=== PATIENT | female | born 1945 | race Caucasian/White ===

== ENCOUNTER 2017-07-31 03:59 | Outpatient (CLI) | payer MEDICARE ==
[~2017-07-31 03:59] MED LIST: ALBU18HF2 INH; ASPI-1265 PO; BECL7.3A INH; ERGO500056 PO; ESOM40CA30 PO; LACT1CAP65 PO; LOSA25TA96 PO; METF500T4 PO; METO100T7 PO; MONT10TA21 PO; NITR4.1S2 TL; NYSPWD TP; WEL625T PO
== END 2017-07-31 23:59 | disposition home or self-care (01) ==
LOC: DIABETIC 03:59
PROVIDERS: ATTEND Otolaryngology
DX: E11.65 Type 2 diabetes mellitus with hyperglycemia (principal); J44.9 Chronic obstructive pulmonary disease, unspecified; I10 Essential (primary) hypertension; J45.909 Unspecified asthma, uncomplicated; E11.21 Type 2 diabetes mellitus with diabetic nephropathy; E11.40 Type 2 diabetes mellitus with diabetic neuropathy, unspecified; E11.319 Type 2 diabetes mellitus with unspecified diabetic retinopathy without macular edema; E11.43 Type 2 diabetes mellitus with diabetic autonomic (poly)neuropathy; K31.84 Gastroparesis; E78.5 Hyperlipidemia, unspecified; I25.10 Atherosclerotic heart disease of native coronary artery without angina pectoris; Z98.890 Other specified postprocedural states
CPT/HCPCS: G0108

== ENCOUNTER 2017-10-28 00:23 | Outpatient (CLI) | payer MEDICARE, MEDICAID | END 2017-10-28 23:59 | disposition home or self-care (01) | LOC: DIABETIC 00:23 | PROVIDERS: ATTEND Family Medicine | DX: E11.9 Type 2 diabetes mellitus without complications (principal); I10 Essential (primary) hypertension; J44.9 Chronic obstructive pulmonary disease, unspecified; Z85.89 Personal history of malignant neoplasm of other organs and systems | CPT/HCPCS: G0108 ==

== ENCOUNTER 2018-01-27 03:44 | Outpatient (CLI) | payer MEDICARE ==
[~2018-01-27 03:44] MED LIST changes: +METF-436 PO; -METF500T4 PO
== END 2018-01-27 23:59 | disposition home or self-care (01) ==
LOC: DIABETIC 03:44
PROVIDERS: ATTEND Family Medicine
DX: E11.9 Type 2 diabetes mellitus without complications (principal); I10 Essential (primary) hypertension; E78.5 Hyperlipidemia, unspecified; J44.9 Chronic obstructive pulmonary disease, unspecified; K21.9 Gastro-esophageal reflux disease without esophagitis; I11.0 Hypertensive heart disease with heart failure; I50.9 Heart failure, unspecified; E78.00 Pure hypercholesterolemia, unspecified; I25.110 Atherosclerotic heart disease of native coronary artery with unstable angina pectoris; Z79.82 Long term (current) use of aspirin
CPT/HCPCS: G0108

== ENCOUNTER 2018-05-29 16:16 | Inpatient (IN) | payer MEDICARE, MEDICAID ==
[~2018-05-29] VITALS: Ht 157.5 cm; Wt 79.8 kg
[2018-05-29 17:18] LABS: BASOPHILS % (AUTO) 0.2 % (0-1); EOSINOPHILS % (AUTO) 0 % (0-6); HEMATOCRIT 33.7 % (35.0-45.0); HEMOGLOBIN 10.8 g/dl (12.0-16.0); LYMPHOCYTES # (AUTO) 1.7 X10'3 (1.1-4.8); LYMPHOCYTES % (AUTO) 14.5 % (21-51); MEAN CORPUSCULAR HEMOGLOBIN 26.3 PG (27.0-31.0); MEAN CORPUSCULAR VOLUME 82.2 FL (78-98); MEAN PLATELET VOLUME 7.9 FL (7.4-10.4); MONOCYTES # (AUTO) 0.9 X10'3 (0-0.9); MONOCYTES % (AUTO) 7.9 % (2-12); NEUTROPHILS % (AUTO) 77.4 % (42-75); PLATELET COUNT 261 X10'3 (140-440); RED CELL DISTRIBUTION WIDTH 17.9 % (11.5-14.5); WHITE BLOOD COUNT 11.6 X10'3 (4.5-11.0)
[2018-05-29 17:31] LABS: INR 1.2 INR; PROTHROMBIN TIME 11.6 SECONDS (9.0-12.0)
[2018-05-29 17:35] LABS: URINE HCG NEGATIVE (NEG)
[2018-05-29 17:35] LABS: ALANINE AMINOTRANSFERASE 19 U/L (12-78); ALBUMIN 3.2 G/DL (3.4-5.0); ALBUMIN/GLOBULIN RATIO 0.7 (1.1-1.5); ALKALINE PHOSPHATASE 79 IU/L (46-116); ANION GAP 15 (8-16); ASPARTATE AMINO TRANSFERASE 18 U/L (10-37); BILIRUBIN,TOTAL 0.9 MG/DL (0.1-1.0); BLOOD UREA NITROGEN 23 MG/DL (7-18); BUN/CREATININE RATIO 16.5 (6.6-38.0); CALCIUM 9.4 MG/DL (8.5-10.1); CHLORIDE 99 MMOL/L (99-107); CREATININE 1.39 MG/DL (0.40-0.90); GLUCOSE 149 MG/DL (70-104); POTASSIUM 4.1 MMOL/L (3.5-5.1); SODIUM 135 MMOL/L (135-145); TOTAL CARBON DIOXIDE 21.2 MMOL/L (24-32); eGFR 37 ML/MIN
[2018-05-29 17:41] LABS: TOTAL CELLS COUNTED 100
[2018-05-29 17:43] LABS: ANISOCYTOSIS 2+; PLATELET ESTIMATE NORMAL; POLYCHROMASIA FEW
[2018-05-29] MEDS ORDERED: normal saline 1000ML IV soln IVB ONE ×2 (17:55→20:20)
[2018-05-29] MEDS ORDERED: ondansetron/PF 4mg/2ml inj IV ONE (17:55)
[2018-05-29 18:18] LABS: LIPASE 55 U/L (73-393)
[2018-05-29 18:41] LABS: CLARITY,URINE CLOUDY (Clear); COLOR,URINE YELLOW (Yellow); GLUCOSE, URINE NEGATIVE (Neg); KETONES,URINE TRACE mg/dl (Neg); LEUKOCYTE ESTERASE ,URINE SMALL (Neg); NITRITES, URINE NEGATIVE (Neg); OCCULT BLOOD,URINE TRACE-INTACT (Neg); PH,URINE 5.5 (4.8-8.0); PROTEIN,URINE 30 mg/dl (Neg); UROBILINOGEN,URINE 0.2 E.U/dL (0.2-1.0)
[2018-05-29 18:46] LABS: UA COLLECTION TYPE CLN CATCH MIDSTREAM
[2018-05-29 18:59] LABS: BACTERIA,URINE 2+ /HPF (Neg); MUCUS STRANDS MANY /LPF (Neg); RBC,URINE 0-2 /HPF (0-2); SQUAMOUS EPITHELIAL CELL,UR MANY /LPF (FEW)
[2018-05-29 19:00] LABS: AMORPHOUS URATES 1+; FINE GRANULAR CAST 0-3 /LPF (NEGATIVE)
[2018-05-29] MEDS ORDERED: metroNIDAZOLE-Flagyl 500mg/NS 100 ML IV STA (19:51)
[2018-05-29] MEDS ORDERED: levoFLOXACIN-Levaquin 500mg/D5 100 ML IV ONE (19:55)
[2018-05-29] MEDS ORDERED: insulin Lispro (HumaLOG) vial - multi-dose SQ SCH (21:55)
[2018-05-29] MEDS ORDERED: glucagon, human recombinant 1mg kit SUBCUT PRN (21:55)
[2018-05-29] MEDS ORDERED: mag hydrox/Alum hydrox/simeth 30ml oral suspension PO PRN (21:55)
[2018-05-29] MEDS ORDERED: dextrose 50%-water 50ml dispensing syringe IV PRN ×2 (21:55)
[2018-05-29] MEDS ORDERED: dextrose ORAL solution 15 GM/59 ML bottle PO PRN ×2 (21:55)
[2018-05-29] MEDS ORDERED: magnesium hydroxide 30ml (MOM) UD suspension PO PRN (21:55)
[2018-05-29] MEDS ORDERED: ondansetron/PF 4mg/2ml inj IV PRN (21:55)
[2018-05-29] MEDS ORDERED: acetaminophen 325mg tablet PO PRN ×2 (21:55)
[2018-05-29] MEDS ORDERED: MESSAGE TO PHARMACY PO ONE (21:55)
[2018-05-29] MEDS ORDERED: montelukast 10mg tablet PO PRN (22:00)
[2018-05-29] MEDS ORDERED: NITROGLYCERIN SL PRN (22:00)
[2018-05-29 23:30] VITALS: BP 108/73
[2018-05-29] MEDS: normal saline 1000ml 1,000 ML IV SCH (23:35)
[2018-05-29] MEDS: metroNIDAZOLE-Flagyl 500mg/NS 100 ML IV SCH (23:38)
[2018-05-30 05:23] LABS: BASOPHILS % (AUTO) 0.1 % (0-1); EOSINOPHILS % (AUTO) 0 % (0-6); HEMATOCRIT 28.3 % (35.0-45.0); HEMOGLOBIN 9.1 g/dl (12.0-16.0); LYMPHOCYTES # (AUTO) 0.8 X10'3 (1.1-4.8); LYMPHOCYTES % (AUTO) 12.8 % (21-51); MEAN CORPUSCULAR HEMOGLOBIN 26.3 PG (27.0-31.0); MEAN CORPUSCULAR HGB CONC 32.2 % (33.0-36.5); MEAN CORPUSCULAR VOLUME 81.8 FL (78-98); MEAN PLATELET VOLUME 7.9 FL (7.4-10.4); MONOCYTES # (AUTO) 0.4 X10'3 (0-0.9); MONOCYTES % (AUTO) 6.6 % (2-12); NEUTROPHILS # (AUTO) 5.3 X10'3 (1.8-7.7); NEUTROPHILS % (AUTO) 80.5 % (42-75); PLATELET COUNT 180 X10'3 (140-440); RED BLOOD COUNT 3.46 X10'6 (4.20-5.60); RED CELL DISTRIBUTION WIDTH 18.1 % (11.5-14.5); WHITE BLOOD COUNT 6.6 X10'3 (4.5-11.0)
[2018-05-30] MEDS: normal saline 1000ml 1,000 ML IV SCH ×2 (05:55→17:00)
[2018-05-30 05:59] LABS: ALBUMIN 2.4 G/DL (3.4-5.0); ANION GAP 13 (8-16); BLOOD UREA NITROGEN 17 MG/DL (7-18); BUN/CREATININE RATIO 13.6 (6.6-38.0); CALCIUM 8.2 MG/DL (8.5-10.1); CHLORIDE 100 MMOL/L (99-107); CREATININE 1.25 MG/DL (0.40-0.90); GLUCOSE 129 MG/DL (70-104); POTASSIUM 3.9 MMOL/L (3.5-5.1); SODIUM 134 MMOL/L (135-145); TOTAL CARBON DIOXIDE 20.9 MMOL/L (24-32); eGFR 42 ML/MIN
[2018-05-30] MEDS: pantoprazole 40mg Tablet.DR PO SCH (07:30)
[2018-05-30] MEDS ORDERED: levoFLOXACIN-Levaquin 250mg/D5 50 ML IV SCH (08:00)
[2018-05-30] MEDS ORDERED: enoxaparin 40mg/0.4ml syringe SUBCUT SCH (08:00)
[2018-05-30] MEDS ORDERED: METOPROLOL SUCCINATE PO SCH (08:00)
[2018-05-30] MEDS: lactobacillus rhamnosus 10,000 MMU CELLS/CAPSULE PO SCH (08:05)
[2018-05-30] MEDS: aspirin 81mg tab.chew PO SCH (08:05)
[2018-05-30] MEDS: metroNIDAZOLE-Flagyl 500mg/NS 100 ML IV SCH (08:08)
[2018-05-30] MEDS ORDERED: enoxaparin 30mg/0.3ml syringe SUBCUT SCH (08:14)
[2018-05-30 10:00] VITALS: BP 106/39
[2018-05-30] MEDS: levoFLOXACIN 250mg tablet PO SCH (10:18)
[2018-05-30] MEDS: nystatin 15 GM powder TP PRN (10:49)
[2018-05-30] MEDS: ESOMEPRAZOLE 40 MG PO SCH (12:49)
[2018-05-30] MEDS ORDERED: LEVO25TA7 PO (13:29)
[2018-05-30] MEDS: metroNIDAZOLE 500mg tablet PO SCH (17:00)
[2018-05-30 18:00] VITALS: BP 121/66
[2018-05-30] MEDS: metFORMIN 500mg tablet PO SCH (20:21)
[2018-05-30] MEDS ORDERED: insulin glargine (Lantus) pen - multi-dose SQ SCH (21:00)
[2018-05-31] MEDS: metroNIDAZOLE 500mg tablet PO SCH ×2 (00:36→07:40)
[2018-05-31] MEDS: normal saline 1000ml 1,000 ML IV SCH (01:32)
[2018-05-31 06:57] LABS: BASOPHILS % (AUTO) 0.1 % (0-1); EOSINOPHILS # (AUTO) 0.1 X10'3 (0-0.9); HEMATOCRIT 26.5 % (35.0-45.0); HEMOGLOBIN 8.4 g/dl (12.0-16.0); LYMPHOCYTES # (AUTO) 0.6 X10'3 (1.1-4.8); LYMPHOCYTES % (AUTO) 10.5 % (21-51); MEAN CORPUSCULAR HEMOGLOBIN 26.5 PG (27.0-31.0); MEAN CORPUSCULAR HGB CONC 31.9 % (33.0-36.5); MEAN PLATELET VOLUME 8.1 FL (7.4-10.4); MONOCYTES # (AUTO) 0.5 X10'3 (0-0.9); MONOCYTES % (AUTO) 8.8 % (2-12); NEUTROPHILS # (AUTO) 4.5 X10'3 (1.8-7.7); NEUTROPHILS % (AUTO) 79.6 % (42-75); PLATELET COUNT 179 X10'3 (140-440); RED BLOOD COUNT 3.19 X10'6 (4.20-5.60); RED CELL DISTRIBUTION WIDTH 17.9 % (11.5-14.5); WHITE BLOOD COUNT 5.6 X10'3 (4.5-11.0)
[2018-05-31 07:10] LABS: ALBUMIN 2.2 G/DL (3.4-5.0); ANION GAP 11 (8-16); BLOOD UREA NITROGEN 13 MG/DL (7-18); BUN/CREATININE RATIO 11.1 (6.6-38.0); CALCIUM 7.9 MG/DL (8.5-10.1); CHLORIDE 104 MMOL/L (99-107); CREATININE 1.17 MG/DL (0.40-0.90); GLUCOSE 139 MG/DL (70-104); POTASSIUM 3.8 MMOL/L (3.5-5.1); SODIUM 137 MMOL/L (135-145); TOTAL CARBON DIOXIDE 22.5 MMOL/L (24-32); eGFR 45 ML/MIN
[2018-05-31 07:17] VITALS: BP 111/45
[2018-05-31] MEDS: metFORMIN 500mg tablet PO SCH (07:40)
[2018-05-31] MEDS: pantoprazole 40mg Tablet.DR PO SCH (07:40)
[2018-05-31] MEDS: aspirin 81mg tab.chew PO SCH (07:40)
[2018-05-31] MEDS: lactobacillus rhamnosus 10,000 MMU CELLS/CAPSULE PO SCH (07:41)
[2018-05-31] MEDS: ESOMEPRAZOLE 40 MG PO SCH (07:42)
[2018-05-31] MEDS: nystatin 15 GM powder TP PRN (07:42)
[2018-05-31] MEDS ORDERED: METR500T4 PO (07:46)
[2018-05-31] MEDS ORDERED: LEVO500T2 PO (07:46)
[2018-05-31] MEDS ORDERED: levoFLOXACIN 250mg tablet PO SCH (11:00)
[2018-05-31] MEDS: levoFLOXACIN 250mg tablet PO SCH (11:31)
== END 2018-05-31 13:00 | disposition home or self-care (01) | DRG 682 ==
LOC: ER 16:16 → ED HOLD 21:53 → ORTHO 4S 23:05
PROVIDERS: ADMIT Hospitalist; ATTEND Internal Medicine
DX: N17.9 Acute kidney failure, unspecified (principal); E43 Unspecified severe protein-calorie malnutrition; K57.92 Diverticulitis of intestine, part unspecified, without perforation or abscess without bleeding; E11.9 Type 2 diabetes mellitus without complications; D63.8 Anemia in other chronic diseases classified elsewhere; M35.3 Polymyalgia rheumatica; R00.0 Tachycardia, unspecified; Z90.710 Acquired absence of both cervix and uterus; Z95.3 Presence of xenogenic heart valve; Z88.2 Allergy status to sulfonamides; Z88.6 Allergy status to analgesic agent; Z88.8 Allergy status to other drugs, medicaments and biological substances; Z88.1 Allergy status to other antibiotic agents; Z91.018 Allergy to other foods; Z79.82 Long term (current) use of aspirin; Z79.84 Long term (current) use of oral hypoglycemic drugs; Z86.73 Personal history of transient ischemic attack (TIA), and cerebral infarction without residual deficits; Z82.49 Family history of ischemic heart disease and other diseases of the circulatory system; Z84.1 Family history of disorders of kidney and ureter; Z83.79 Family history of other diseases of the digestive system; Z68.32 Body mass index [BMI] 32.0-32.9, adult
CPT/HCPCS: 36415; 74176; 80048; 80053; 81001; 81025; 82948; 83036; 83690; 85025; 85610; 87070; 96374; 96375; 99285; G0378; J1650; J1815; J1956; J2405; J3490; J7030

== ENCOUNTER 2018-08-06 06:21 | Day surgery (SDC) | payer MEDICARE, MEDICAID ==
[2018-07-25 12:31] LABS: BASOPHILS % (AUTO) 0.8 % (0-1); EOSINOPHILS # (AUTO) 0.2 X10'3 (0-0.9); EOSINOPHILS % (AUTO) 3.9 % (0-6); LYMPHOCYTES # (AUTO) 1.8 X10'3 (1.1-4.8); LYMPHOCYTES % (AUTO) 33.2 % (21-51); MEAN CORPUSCULAR HEMOGLOBIN 26.8 PG (27.0-31.0); MEAN CORPUSCULAR HGB CONC 32.2 % (33.0-36.5); MEAN CORPUSCULAR VOLUME 83.3 FL (78-98); MEAN PLATELET VOLUME 8.8 FL (7.4-10.4); MONOCYTES # (AUTO) 0.6 X10'3 (0-0.9); MONOCYTES % (AUTO) 11.6 % (2-12); NEUTROPHILS # (AUTO) 2.8 X10'3 (1.8-7.7); NEUTROPHILS % (AUTO) 50.5 % (42-75); PRE OP HEMATOCRIT 35.1 % (35.0-45.0); PRE OP HEMOGLOBIN 11.3 g/dL (12.0-16.0); PRE OP PLATELET COUNT 184 X10'3 (140-440); RED BLOOD COUNT 4.21 X10'6 (4.20-5.60); RED CELL DISTRIBUTION WIDTH 16.3 % (11.5-14.5)
[2018-07-25 12:51] LABS: ALBUMIN 3.7 G/DL (3.4-5.0); ALBUMIN/GLOBULIN RATIO 0.8 (1.1-1.5); ALKALINE PHOSPHATASE 88 IU/L (46-116); BLOOD UREA NITROGEN 18 MG/DL (7-18); BUN/CREATININE RATIO 16.2 (6.6-38.0); CALCIUM 8.9 MG/DL (8.5-10.1); CHLORIDE 101 MMOL/L (99-107); CREATININE 1.11 MG/DL (0.40-0.90); PRE OP ALT 32 U/L (30-65); PRE OP ANION GAP 11 (8-16); PRE OP AST 27 U/L (10-37); PRE OP BILIRUB, TOTAL 0.2 MG/DL (0.0-1.0); PRE OP GLUCOSE 160 MG/DL (70-104); PRE OP POTASSIUM 4.6 MMOL/L (3.4-5.1); PRE OP SODIUM 138 MMOL/L (135-145); TOTAL CARBON DIOXIDE 26.5 MMOL/L (24-32); TOTAL PROTEIN 8.3 G/DL (6.4-8.2); eGFR 48 ML/MIN
[2018-07-25 13:04] LABS: CLARITY,URINE CLEAR (Clear); COLOR,URINE STRAW (Yellow); GLUCOSE, URINE NEGATIVE (Neg); KETONES,URINE NEGATIVE (Neg); LEUKOCYTE ESTERASE ,URINE MODERATE (Neg); NITRITES, URINE NEGATIVE (Neg); OCCULT BLOOD,URINE NEGATIVE (Neg); PH,URINE 5.5 (4.8-8.0); PROTEIN,URINE NEGATIVE (Neg); UROBILINOGEN,URINE 0.2 E.U/dL (0.2-1.0)
[2018-07-25 13:05] LABS: UA COLLECTION TYPE CLN CATCH MIDSTREAM
[2018-07-25 13:11] LABS: MUCUS STRANDS FEW /LPF (Neg); SQUAMOUS EPITHELIAL CELL,UR MANY /LPF (FEW); TRANSITIONAL EPI CELLS,URINE MODERATE /HPF
[2018-07-25 13:12] LABS: BACTERIA,URINE 3+ /HPF (Neg); WBC,URINE 0-4 /HPF (0-4)
[2018-07-25 13:13] LABS: RBC,URINE NONE SEEN /HPF (0-2); RENAL CELLS, URINE MODERATE /HPF
[~2018-08-06] VITALS: Ht 160 cm; Wt 78.0 kg
[2018-08-06] VITALS (45 sets, daily range): BP systolic 101–173; BP diastolic 48–102
[~2018-08-06 06:21] MED LIST changes: -ALBU18HF2 INH; -ASPI-1265 PO; -BECL7.3A INH; +CHOL5000 PO; +DOCUMENT DATE & TIME OF BETA-BLOCKER PO ONE; -ERGO500056 PO; -ESOM40CA30 PO; +FAMO20TA8 PO; -LOSA25TA96 PO; -WEL625T PO; +ceFOXitin 2 GM ADDvantage bag 100 ML IV ONE; +ceFOXitin sod/dextrose 2g/50ml 50 ML IV ONE; +famotidine 20mg tablet PO ONE; +ringers solution, lacted 1,000 ML IV SCH
[2018-08-06] MEDS ORDERED: ceFAZolin 1000mg inj ONE (10:23)
[2018-08-06] MEDS ORDERED: BUPIVAcaine/PF 2.5mg/ml (0.25%) 10ml vial ONE ×2 (10:23→10:25)
[2018-08-06] MEDS ORDERED: epiNEPHrine 1 mg/ml inj ONE (10:25)
[2018-08-06] MEDS ORDERED: sevoflurane 250ml liquid IH ONE (10:54)
[2018-08-06] MEDS ORDERED: midazolam 2 mg/2 ml injection ONE (10:57)
[2018-08-06] MEDS ORDERED: fentaNYL/PF 50MCG/1 ML 2ML syringe ONE (10:57)
[2018-08-06] MEDS ORDERED: ondansetron/PF 4mg/2ml inj ONE (11:15)
[2018-08-06] MEDS ORDERED: propofol inj 20 ML IV ONE (11:15)
[2018-08-06] MEDS ORDERED: dexamethasone sod phosphate 4mg/ml inj. ONE (11:15)
[2018-08-06] MEDS ORDERED: rocuronium 10mg/ml inj IV ONE (11:15)
[2018-08-06] MEDS ORDERED: ringers solution, lacted 1,000 ML IV SCH (11:28)
[2018-08-06] MEDS ORDERED: morphine 4 MG/ML inj SYRINge IV PRN ×2 (11:30)
[2018-08-06] MEDS ORDERED: ondansetron/PF 4mg/2ml inj IV PRN (11:30)
[2018-08-06] MEDS ORDERED: proCHLORperazine 10 MG/2 ml inj IV PRN (11:30)
[2018-08-06] MEDS ORDERED: meperidine/PF 25mg/ml syringe IV PRN ×3 (11:30)
[2018-08-06] MEDS ORDERED: glycopyrrolate 0.2mg/ml inj ONE (11:34)
[2018-08-06] MEDS ORDERED: neostigmine methylsulfate 1 MG/ML 10ml vial ONE (11:34)
--- NOTE | 2018-08-06 12:03 | NUR ---
Received from OR via [facility], accompanied by Anesthesiologist DR NEGRON and report given by Anesthesiologist. PT DROWSY, DENIES PAIN, 4 ABDOMINAL LAP SITES W/BANDAIDS CDI. Addendum: 08/06/18 at 1302 by Nita Rod RN Amended: Links added.
--- NOTE | 2018-08-06 13:20 | NUR ---
PT SA02 DOWN TO 86% ON ROOM AIR, PT APPROPRIATE BUT SLEEPY, PLACED BACK ON NC 02 2 LITERS, INCREASED TO 99%, PT IS SOMEWHAT PAINFUL BUT DECLINES ANY PAIN MEDICATION, STATES SHE DOESN'T TAKE ANY. Addendum: 08/06/18 at 1323 by Nita Rod RN Amended: Links added.
[2018-08-06] MEDS ORDERED: acetaminophen 1,000mg/100ml IV 100 ML IV ONE (13:45)
[2018-08-06] MEDS ORDERED: acetaminophen/codeine 120mg/12mg per 5ml cup PO ONE (14:40)
[2018-08-06] MEDS ORDERED: HYDROmorphone inj. 0.5 MG/0.5 ML DISP.SYRIN IV PRN (16:10)
[2018-08-06] MEDS ORDERED: CADD PCA waste documentation MC PRN (16:50)
[2018-08-06] MEDS ORDERED: naloxone 0.4 mg/ml inj IV PRN (16:50)
[2018-08-06] MEDS ORDERED: montelukast 10mg tablet PO PRN (17:50)
[2018-08-06] MEDS ORDERED: HYDROmorphone/NS 1 mg/ml CADD 50 ML IV SCH (18:05)
--- NOTE | 2018-08-06 18:08 | NUR ---
PT AGREED TO TAKE PAIN MEDICATION, 1000 MG TYLENOL GIVEN FOLLOWED BY .2 MG DILAUDID, PT STATES RELIEF, IS SLEEPY BUT APPROPRIATE, JELLO AND LEMON [place] GIVEN, PT CONSUMED W/O ANY DIFFICULTY. PT AWAITING SURGICAL BED. Addendum: 08/06/18 at 1811 by Nita Rod RN Amended: Links added.
[2018-08-06] MEDS: HYDROmorphone/NS 1 mg/ml CADD 50 ML IV SCH ×4 (18:33→23:00)
--- NOTE | 2018-08-06 19:03 | NUR ---
Report called to receiving nurse. PT Transferred TO ROOM 348B IN STABLE CONDITION via BED W/2 PT Belongings BAGS, CELL PHONE AND GLASSES, PT AMBULATE W/CONTACT GUARD TO BATHROOM FOR LARGE VOID THEN BACK TO BED, RECEIVING RN AT BEDSIDE TO RECEIVE PT, SIDE RAILS UP X 2, CALL LIGHT GIVEN, BLL. Special Issues communicated to receiving nurse. YES. Addendum: 08/06/18 at 1916 by Nita Rod RN Amended: Links added.
[2018-08-06] MEDS ORDERED: nitroGLYCERIN 0.4mg SUBLingual tab SL PRN (19:15)
[2018-08-06] MEDS ORDERED: nystatin 15 GM powder TP PRN (20:00)
[2018-08-06] MEDS: metFORMIN 500mg tablet PO SCH (20:58)
[2018-08-06] MEDS: famotidine 20mg tablet PO SCH (20:58)
--- NOTE | 2018-08-06 22:53 | NUR ---
Patient in room [facility]. I have received report from AMRIK Moya RN and had the opportunity to ask questions and assume patient care. Addendum: 08/06/18 at 2255 by Jessa Saha RN Amended: Links added.
[2018-08-07] MEDS: HYDROmorphone/NS 1 mg/ml CADD 50 ML IV SCH ×8 (01:00→15:00)
--- NOTE | 2018-08-07 06:32 | NUR ---
Problems reprioritized. Patient report given, questions answered & plan of care reviewed with ERN. Maritza Addendum: 08/07/18 at 0632 by Jessa Saha RN Amended: Links added.
--- NOTE | 2018-08-07 06:55 | NUR ---
Patient in room [facility]. I have received report from DIOGENES Joseph and had the opportunity to ask questions and assume patient care. Patient resting at this time. Call light and items of frequent use in reach of patient.
[2018-08-07 08:00] VITALS: BP 101/37
[2018-08-07] MEDS ORDERED: lactobacillus rhamnosus 10,000 MMU CELLS/CAPSULE PO SCH (08:00)
[2018-08-07] MEDS ORDERED: TOPROL 50 MG PO SCH (08:00)
[2018-08-07] MEDS: famotidine 20mg tablet PO SCH (08:15)
[2018-08-07] MEDS: metFORMIN 500mg tablet PO SCH (08:15)
[2018-08-07 11:00] VITALS: BP 166/64
--- NOTE | 2018-08-07 16:30 | NUR ---
patient discharged home via son. Patient taken from unit via wheelchair with x1 staff. Patient took all belongings with her including her home medication from the pharmacy. Discharge instructions given to patient and patient stated an understanding of them. Patient to make follow up appointment with PCP. Patient PIV discontinued with cannula intact. Patient alert, oriented and in no apparent distress at this time.
== END 2018-08-07 16:27 | disposition home or self-care (01) ==
LOC: PAS 06:21 → SUR 3N 18:55 → PAS 08-07 16:27
PROVIDERS: ATTEND Surgery
DX: K80.10 Calculus of gallbladder with chronic cholecystitis without obstruction (principal); M35.3 Polymyalgia rheumatica; M19.90 Unspecified osteoarthritis, unspecified site; I25.2 Old myocardial infarction; E66.9 Obesity, unspecified; E11.22 Type 2 diabetes mellitus with diabetic chronic kidney disease; I12.9 Hypertensive chronic kidney disease with stage 1 through stage 4 chronic kidney disease, or unspecified chronic kidney disease; N18.3 Chronic kidney disease, stage 3 (moderate); K21.9 Gastro-esophageal reflux disease without esophagitis; I49.8 Other specified cardiac arrhythmias; J45.998 Other asthma; K31.819 Angiodysplasia of stomach and duodenum without bleeding; M81.0 Age-related osteoporosis without current pathological fracture; Z88.1 Allergy status to other antibiotic agents; Z91.018 Allergy to other foods; Z86.74 Personal history of sudden cardiac arrest; Z87.09 Personal history of other diseases of the respiratory system; Z86.2 Personal history of diseases of the blood and blood-forming organs and certain disorders involving the immune mechanism; Z68.30 Body mass index [BMI] 30.0-30.9, adult; Z88.2 Allergy status to sulfonamides; Z88.5 Allergy status to narcotic agent; Z88.6 Allergy status to analgesic agent; Z79.84 Long term (current) use of oral hypoglycemic drugs; Z85.41 Personal history of malignant neoplasm of cervix uteri; Z90.89 Acquired absence of other organs; Z86.73 Personal history of transient ischemic attack (TIA), and cerebral infarction without residual deficits; Z85.6 Personal history of leukemia; Z87.01 Personal history of pneumonia (recurrent); Z86.79 Personal history of other diseases of the circulatory system; Z95.2 Presence of prosthetic heart valve; Z90.49 Acquired absence of other specified parts of digestive tract; Z90.710 Acquired absence of both cervix and uterus; Z79.899 Other long term (current) drug therapy; Z88.8 Allergy status to other drugs, medicaments and biological substances; Z98.890 Other specified postprocedural states; Z82.49 Family history of ischemic heart disease and other diseases of the circulatory system; Z83.79 Family history of other diseases of the digestive system; Z84.1 Family history of disorders of kidney and ureter
CPT/HCPCS: 36415; 47562; 80053; 81001; 82948; 85025; 93005; J0131; J0171; J0690; J0694; J1100; J1170; J2250; J2405; J2704; J2710; J3010; J3490; J7120; 88304; A7000; G0378

== ENCOUNTER 2019-06-23 18:59 | Emergency (ER) | payer MEDICARE, MEDICAID ==
[~2019-06-23] VITALS: Ht 160 cm; Wt 173.0 kg
[~2019-06-23 18:59] MED LIST changes: -DOCUMENT DATE & TIME OF BETA-BLOCKER PO ONE; -ceFOXitin 2 GM ADDvantage bag 100 ML IV ONE; -ceFOXitin sod/dextrose 2g/50ml 50 ML IV ONE; -famotidine 20mg tablet PO ONE; -ringers solution, lacted 1,000 ML IV SCH
[2019-06-23] MEDS ORDERED: normal saline 1000ml 1,000 ML IV ONE (19:40)
[2019-06-23 19:52] LABS: BASOPHILS % (AUTO) 0.8 % (0-1); EOSINOPHILS # (AUTO) 0.2 X10'3 (0-0.9); EOSINOPHILS % (AUTO) 3.5 % (0-6); HEMATOCRIT 37.5 % (35.0-45.0); HEMOGLOBIN 12.7 g/dl (12.0-16.0); LYMPHOCYTES # (AUTO) 2.1 X10'3 (1.1-4.8); LYMPHOCYTES % (AUTO) 41.1 % (21-51); MEAN CORPUSCULAR HEMOGLOBIN 31.9 PG (27.0-31.0); MEAN CORPUSCULAR HGB CONC 33.8 g/dL (33.0-36.5); MEAN CORPUSCULAR VOLUME 94.5 FL (78-98); MEAN PLATELET VOLUME 8.2 FL (7.4-10.4); MONOCYTES # (AUTO) 0.5 X10'3 (0-0.9); MONOCYTES % (AUTO) 10.3 % (2-12); NEUTROPHILS # (AUTO) 2.3 X10'3 (1.8-7.7); NEUTROPHILS % (AUTO) 44.3 % (42-75); PLATELET COUNT 152 X10'3 (140-440); RED BLOOD COUNT 3.97 X10'6 (4.20-5.60); WHITE BLOOD COUNT 5.1 X10'3 (4.5-11.0)
[2019-06-23 19:58] LABS: ALANINE AMINOTRANSFERASE 34 U/L (12-78); ALKALINE PHOSPHATASE 80 IU/L (46-116); ANION GAP 11 (8-16); ASPARTATE AMINO TRANSFERASE 27 U/L (10-37); BILIRUBIN,TOTAL 0.3 MG/DL (0.1-1.0); BLOOD UREA NITROGEN 23 MG/DL (7-18); BUN/CREATININE RATIO 17.8 (6.6-38.0); CALCIUM 9.4 MG/DL (8.5-10.1); CHLORIDE 101 MMOL/L (99-107); CREATININE 1.29 MG/DL (0.40-0.90); GLUCOSE 98 MG/DL (70-104); MAGNESIUM 1.6 MG/DL (1.5-2.4); POTASSIUM 4.3 MMOL/L (3.5-5.1); SODIUM 137 MMOL/L (135-145); TOTAL CARBON DIOXIDE 25.3 MMOL/L (24-32); TOTAL PROTEIN 8.2 G/DL (6.4-8.2); eGFR 40 ML/MIN
[2019-06-23 20:12] VITALS: BP 165/85
[2019-06-23 20:22] LABS: CLARITY,URINE CLOUDY (Clear); COLOR,URINE YELLOW (Yellow); GLUCOSE, URINE NEGATIVE (Neg); KETONES,URINE NEGATIVE (Neg); LEUKOCYTE ESTERASE ,URINE LARGE (Neg); NITRITES, URINE NEGATIVE (Neg); OCCULT BLOOD,URINE TRACE-INTACT (Neg); PH,URINE 5.5 (4.8-8.0); PROTEIN,URINE NEGATIVE (Neg); UROBILINOGEN,URINE 0.2 E.U/dL (0.2-1.0)
[2019-06-23 20:28] LABS: UA COLLECTION TYPE VOIDED
[2019-06-23 20:31] LABS: BACTERIA,URINE 4+ /HPF (Neg); RBC,URINE 0-2 /HPF (0-2); SQUAMOUS EPITHELIAL CELL,UR FEW /LPF (FEW); TRANSITIONAL EPI CELLS,URINE FEW /HPF
[2019-06-23] MEDS ORDERED: CEPH250T PO (20:43)
[2019-06-23] MEDS ORDERED: cephalexin 250mg capsule PO ONE (20:45)
== END 2019-06-23 21:02 | disposition home or self-care (01) ==
LOC: ER 19:00
DX: S01.511A Laceration without foreign body of lip, initial encounter (principal); S00.11XA Contusion of right eyelid and periocular area, initial encounter; S40.211A Abrasion of right shoulder, initial encounter; S80.211A Abrasion, right knee, initial encounter; N39.0 Urinary tract infection, site not specified; Z98.890 Other specified postprocedural states; Z88.2 Allergy status to sulfonamides; Z88.1 Allergy status to other antibiotic agents; Z88.5 Allergy status to narcotic agent; Z88.6 Allergy status to analgesic agent; Z88.8 Allergy status to other drugs, medicaments and biological substances; Z79.2 Long term (current) use of antibiotics; Z79.899 Other long term (current) drug therapy; W18.39XA Other fall on same level, initial encounter; Y93.89 Activity, other specified; Y92.098 Other place in other non-institutional residence as the place of occurrence of the external cause; Y99.8 Other external cause status
CPT/HCPCS: 36415; 70450; 70486; 72125; 80053; 81001; 83735; 85025; 87077; 87088; 87186; 99284; J7030

== ENCOUNTER 2022-11-12 04:17 | Emergency (ER) | payer MEDICARE, MEDICAID ==
[~2022-11-12] VITALS: Ht 167.6 cm; Wt 84.6 kg
[~2022-11-12 04:17] MED LIST changes: +ASPI-1071 PO; +ATOR20TA PO; -CHOL5000 PO; +CYCL-1 PO; +ESOM40CA49 PO; -FAMO20TA8 PO; -LACT1CAP65 PO; -METF-436 PO; +MIRA50TA PO; -MONT10TA21 PO; -NITR4.1S2 TL; -NYSPWD TP; +VITAMIN D PO
[2022-11-12 04:26] VITALS: BP 186/86
[2022-11-12] MEDS ORDERED: dexamethasone sod phosphate 10mg/ml inj IM STA (04:34)
[2022-11-12] MEDS ORDERED: ketorolac trometh. 30mg/ml inj. IM ONE (04:35)
== END 2022-11-12 05:13 | disposition home or self-care (01) ==
LOC: ER 04:17
DX: M54.2 Cervicalgia (principal); M62.838 Other muscle spasm; Z88.2 Allergy status to sulfonamides; Z88.5 Allergy status to narcotic agent; Z88.6 Allergy status to analgesic agent; Z91.041 Radiographic dye allergy status; Z88.8 Allergy status to other drugs, medicaments and biological substances
CPT/HCPCS: 96372; 99283; J1885